=== PATIENT | female | born 2000 | race Caucasian/White ===

== ENCOUNTER 2023-09-05 17:07 | Emergency (ER) | payer BC, SELFPAY ==
[2023-09-05 17:11] VITALS: BP 136/79
--- NOTE | 2023-09-05 18:07 | ED.GENMED ---
History of Present Illness
General
Chief Complaint: Musculo-Skeletal Complaint
Time Seen by Provider: 09/05/23 17:59
Travel History
Have you had any contact with someone who has COVID-19?: No
Do you have any symptoms of coronavirus? Fever > 100 degrees, chills, cough, shortness of breath, sore throat, loss of taste or smell, muscle aches, or headache?: No
History of Present Illness
History of Present Illness:
20-year-old female patient left ankle pain. Inversion type injury. She is able to bear weight.
Review of Systems
Review of Systems
Allergies reviewed?: Yes
All Other Systems: ROS reviewed and negative except as documented in HPI and ROS
Phy Exam
Physical Exam
Physical Exam:
GEN: Well appearing, NAD, WDWN
HEENT: Oral mucosa moist, no scleral icterus
Cardiac: Regular rate
Lung: No respiratory distress, no tachypnea
MSK: No gross deformity or injuries. Mild swelling of the left lateral malleolus. No focal tenderness to the illness or proximal fibula. Range of motion of left ankle is normal with no effusion. No pain with a base of the fifth metatarsal
Skin: Good color, no pallor or jaundice, no rashes
Neuro: AO x3, moves all extremities freely
Psych: Calm, cooperative
Course
Orders/Labs/Results
Orders:
Orders
09/05/23 17:15
Ankle, left 3 view CR [CR Ankle - Left Min 3 Views ] Urgent
Comment: pt reports 'twisting' ankle
Reason For Exam: left ankle injury,
Vital Signs
Initial and Last Documented VS:
Initial Vital Signs
Temp Pulse Resp BP Pulse Ox
98.8 F 76 18 136/79 99
09/05/23 17:11 09/05/23 17:11 09/05/23 17:11 09/05/23 17:11 09/05/23 17:11
Last Documented Vital Signs
Temp Pulse Resp BP Pulse Ox
98.8 F 76 18 136/79 99
09/05/23 17:11 09/05/23 17:11 09/05/23 17:11 09/05/23 17:11 09/05/23 17:11
MDM/Problems Addressed
MDM/Problems Addressed:
X-rays of the left ankle are unremarkable for acute fracture, discussed supportive care
*Critical Care Note
Total Time (30-74mins, 75-104mins- exclusive of procedures): Not Applicable
ED Attending Note
-
Portions of this chart may have been created with voice recognition software.� Occasional wrong word or��sound alike� substitutions may have occurred due to the inherent limitations of voice recognition software.
Discharge Plan
Departure
Patient Disposition: Home (Routine Discharge)
Date of Disposition: 09/05/23
Time of Disposition: 18:07
Patient with high blood pressure during this ER visit?: No
Discharge Problem:
Left ankle sprain
Instructions: Ankle Sprain (DC)
Prescriptions:
No Action
omeprazole 20 MG capsule,delayed release(DR/EC)
20 mg PO DAILY Qty: 30 0RF
prednisone 10 MG tablet
30 mg PO DAILY Qty: 9 0RF
albuterol sulfate 1 PUFF HFA aerosol inhaler
2 puff inhalation R QID Qty: 1 0RF
Stand Alone Forms: Return to Work
Interventions
Interventions:
*Risk Screen - Suicide Last Done: 09/05/23 18:19
*General Assessment Last Done: 09/05/23 18:19
*Neglect/Abuse Screening Last Done: 09/05/23 18:19
ED- Fall Risk Assessment Last Done: 09/05/23 18:19
*ED COVID-19 Vaccine History Last Done: 09/05/23 18:19
*Nursing Disposition Last Done: 09/05/23 18:19
ED-Musculoskeletal Assessment Last Done: 09/05/23 17:48
Discharge Date and Time
Discharge Date/Time: 09/05/23 18:20
Print Language: [id number]
== END 2023-09-05 18:20 | disposition home or self-care (01) ==
LOC: EMR 17:07
PROVIDERS: EMERGENCY PHYSICIAN Emergency Medicine; FAMILY PHYSICIAN Family Medicine
DX: S93.402A Sprain of unspecified ligament of left ankle, initial encounter (principal); X50.1XXA Overexertion from prolonged static or awkward postures, initial encounter
CPT/HCPCS: 99283; 73610